=== PATIENT | female | born 2000 | race Caucasian/White ===

== ENCOUNTER 2021-01-04 11:28 | Emergency (ER) | payer MEDICAID ==
[~2021-01-04] VITALS: Ht 167.6 cm; Wt 57.3 kg
[2021-01-04 11:36] VITALS: BP 114/76
[2021-01-04 12:32] LABS: URINE HCG NEGATIVE (NEG)
[2021-01-04 12:36] LABS: CLARITY,URINE SLIGHTLY CLOUDY (Clear); COLOR,URINE YELLOW (Yellow); GLUCOSE, URINE NEGATIVE (Neg); KETONES,URINE NEGATIVE (Neg); LEUKOCYTE ESTERASE ,URINE NEGATIVE (Neg); NITRITES, URINE NEGATIVE (Neg); OCCULT BLOOD,URINE NEGATIVE (Neg); PROTEIN,URINE NEGATIVE (Neg)
[2021-01-04 12:40] LABS: UA COLLECTION TYPE CLN CATCH MIDSTREAM
--- NOTE | 2021-01-04 12:42 | NUR ---
[facility] IS REJECTING UA FOR CULTURE
[2021-01-04 12:43] LABS: BACTERIA,URINE 3+ /HPF (Neg); MUCUS STRANDS FEW /LPF (Neg); RBC,URINE 0-2 /HPF (0-2); SQUAMOUS EPITHELIAL CELL,UR MANY /LPF (FEW); WBC,URINE 20-30 /HPF (0-4)
[2021-01-04] MEDS ORDERED: CEPH-585 PO (13:11)
== END 2021-01-04 13:08 | disposition home or self-care (01) ==
LOC: ER 11:29
DX: R82.71 Bacteriuria (principal); F17.210 Nicotine dependence, cigarettes, uncomplicated
CPT/HCPCS: 81001; 81025; 99283